=== PATIENT | female | born 1935 | race Caucasian/White ===

== ENCOUNTER 2017-02-28 07:31 | Day surgery (SDC) | payer MEDICARE, OTHER ==
[2017-02-28] MEDS ORDERED: Phenylephrine 10% Ophth Soln 5 ML Bot EYERT SCH (08:00)
[2017-02-28] MEDS ORDERED: Sodium Chloride 0.9% 10 ML Syringe FLUSH PRN (08:00)
[2017-02-28] MEDS ORDERED: Moxifloxacin 0.5% Ophth Soln 3 ML Bottle EYERT SCH (08:00)
[2017-02-28] MEDS ORDERED: Cyclopentolate 1% Ophth Soln 5 ML Bottle EYERT SCH (08:00)
[2017-02-28] MEDS ORDERED: Ondansetron 4 MG/2 ML SDV IVPUSH ONE (10:00)
[2017-02-28] MEDS ORDERED: Propofol 200 MG/20 ML SDV IV ONE (10:00)
[2017-02-28 12:04] VITALS: BP 143/71
--- NOTE | 2017-02-28 14:40 | OR ---
DATE OF OPERATION: 02/28/2017 SURGEON: Polo Wu MD PREOPERATIVE DIAGNOSES: 1. Cataract, right eye. 2. Poor pupillary dilation, right eye. POSTOPERATIVE DIAGNOSES: 1. Cataract, right eye. 2. Poor pupillary dilation, right eye. PROCEDURES: 1. Phacoemulsification of the cataract, right eye with the placement of an Joseph, model ZCB00, 23 diopter, foldable posterior chamber intraocular lens. 2. Manual pupillary dilation utilizing 6.25 mm Malyugin ring. DESCRIPTION OF PROCEDURE: Peribulbar anesthetic was performed using a mixture of 2% lidocaine with epinephrine and Wydase. The patient was then prepped and draped in usual fashion. A 3-mm fornix based conjunctival flap was performed at the 10 o'clock position. Hemostasis was obtained using diathermy and a 2.8-mm grooved near clear corneal incision was made. A stab incision was made into the anterior chamber at the 12 o'clock position, and a second stab incision underlying the near clear corneal incision. Viscoat was instilled into the anterior chamber, and the because of the patient's very poor pupillary dilation, a 6.25-mm Malyugin ring was placed. A continuous tear anterior capsulotomy was then performed. Hydrodissection was accomplished balanced salt solution. The nucleus removed in a divide and conquer fashion. The remaining cortical material was removed with the irrigation/aspiration unit. Viscoat was again instilled into the anterior chamber. An Joseph model ZCB00, 23-diopter, foldable posterior chamber intraocular lens was placed into the capsular bag. The haptics being positioned at the 1 and 7 o'clock positions. The Malyugin ring was then removed and residual viscoelastic was removed from the anterior chamber. The anterior chamber was reformed with Miostat. The wound was checked and noted to be watertight. The conjunctiva was secured in its original position with diathermy. 1 mL of Celestone was injected subconjunctivally. Alphagan P 0.1% and TobraDex eye ointment were then placed in the patient's eye. She tolerated the above-mentioned procedures well and there were without complication. Elapsed phacoemulsification time was 35.5 seconds. /[id number] DEG/MODL CC: MD Emi Meade, OD
== END 2017-02-28 11:37 | disposition home or self-care (01) ==
LOC: FB.SDS 07:31
PROVIDERS: ATTEND Ophthalmology
PROC: 08RJ3JZ Replacement of Right Lens with Synthetic Substitute, Percutaneous Approach (ICD-10-PCS; principal; 2017-02-28)
DX: H25.9 Unspecified age-related cataract (principal); I10 Essential (primary) hypertension; H40.1133 Primary open-angle glaucoma, bilateral, severe stage; Z79.899 Other long term (current) drug therapy
CPT/HCPCS: 00142; 66984; A4217; C1780; J2405; J2704; J7050

== ENCOUNTER 2019-02-07 19:35 | Emergency (ER) | payer MEDICARE, OTHER, MEDICAID ==
--- NOTE | 2019-02-07 21:00 | EDM.PDOC ---
ED HPI GENERAL MEDICAL PROBLEM - General Stated Complaint: FELL Time Seen by Provider: 02/07/19 20:42 Source of Information: Reports: Patient, Family (Daughter) History Limitations: Reports: Other (Patient has lewy body dementia and is a poor historian) - History of Present Illness INITIAL COMMENTS - FREE TEXT/NARRATIVE: 83-year-old female who reports that she was walking on the grass at her assisted living facility with a friend and they were trying to get back onto the sidewalk and apparently they lost footing and fell. She fell on her right side hitting her head, her right chest, her right pelvis/hip and knee. This was apparently unwitnessed but there was also apparently no loss of consciousness the patient has Lewy body dementia but she does seem to remember the fall and couldn't give me a fairly accurate accounting. It occurred approximate 7 PM. She was ambulatory after this occurred. She is complaining of headache, right chest wall pain, right hip and pelvis pain and right knee pain. She denies any nausea. There's been no vomiting. She told the nurse that her pain was a 5/10 he states that sore. It is worse with palpation and movement. She denies any trouble breathing at this point. She denies any weakness or dizziness. She is brought here by her daughter. However, her daughter not witnessed this occurrence and in fact nobody actually saw except for the other gentleman walking with her when they fell together. The daughter brought the patient here because the patient continued to complain of pain in the areas mentioned above and because his prompted to do so by staff at the assisted living. There are no other associated signs or symptoms. There are no other modifying factors. 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: Reports: Other (see below) (Nothing) right hip and knee Pain Score (Numeric/FACES): 5 - Related Data Allergies Allergy/AdvReac Type Severity Reaction Status Date / Time No Known Allergies Allergy Verified 11/12/14 09:19 Home Meds: Home Meds Acetaminophen [Tylenol] 325 mg PO Q4H PRN 11/12/14 [History] Aspirin [Ecotrin EC] 81 mg PO DAILY 11/12/14 [History] Calcium Carbonate/Vitamin D3 [Sm Calcium 600 + Vit D 400 Tab] 1 ea PO DAILY 03/21 [History] Donepezil [Aricept] 5 mg PO BEDTIME 11/12/14 [History] Dorzolamide HCl/Timolol Maleat [Cosopt Eye Drops] 1 drop EYELF BID 11/12/14 [ History] Latanoprost [Xalatan 0.005% Ophth Soln] 1 drop EYEBOTH BEDTIME 11/12/14 [History ] Meclizine [Antivert] 25 mg PO Q6H PRN 11/12/14 [History] Metoprolol Succinate [Toprol XL 50mg] 50 mg PO DAILY 11/12/14 [History] Omeprazole [Prilosec] 20 mg PO DAILY 11/12/14 [History] Ondansetron HCl [Ondansetron] 4 mg PO ASDIRECTED PRN 11/12/14 [History] Phenytoin Sodium Extended [Dilantin] 100 mg PO TID 11/12/14 [History] QUEtiapine [SEROquel] 25 mg PO BEDTIME 11/12/14 [History] Ibuprofen 800 mg PO BEDTIME PRN 11/13/14 [History] Loratadine [Claritin] 10 mg PO DAILY 02/27/17 [History] Acetaminophen [Tylenol] 325 mg PO ASDIRECTED 02/28/17 [History] Loperamide [Imodium AD] 2 mg PO BID PRN 02/28/17 [History] Naproxen Sodium 440 mg PO BID PRN 02/28/17 [History] Cephalexin [Keflex] 500 mg PO TID 7 Days #21 capsule 02/07/19 [Rx] Past Medical History HEENT History: Reports: Cataract, Glaucoma, Impaired Vision Cardiovascular History: Reports: High Cholesterol, Hypertension Gastrointestinal History: Reports: GERD 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 Musculoskeletal History: Reports: Arthritis Neurological History: Reports: Seizure, Vertigo, Other (See Below) (Lewy body dementia) Psychiatric History: Reports: Dementia (Lewy body) - Infectious Disease History Infectious Disease History: Reports: Chicken Pox, Measles, Mumps, Rubella - Past Surgical History HEENT Surgical History: Reports: Cataract Surgery Other HEENT Surgeries/Procedures: PAST PHACO IOL OF LEFT. GI Surgical History: Reports: Appendectomy Female Surgical History: Reports: Section, Hysterectomy Social & Family History - Tobacco Use Smoking Status *Q: Unknown Ever Smoked (Nonsmoker) - Alcohol Use Alcohol Use History: No - Living Situation & Occupation Living situation: Reports: Assisted Living Social History Comment: Here with her daughter. ED ROS GENERAL - Review of Systems Review Of Systems: See Below Constitutional: Reports: No Symptoms HEENT: Reports: No Symptoms Respiratory: Reports: No Symptoms Cardiovascular: Reports: Chest Pain (Right-sided as mentioned above). Denies: Lightheadedness Endocrine: Reports: No Symptoms GI/Abdominal: Reports: No Symptoms : Reports: No Symptoms (No hematuria) Musculoskeletal: Reports: Other (As above) Skin: Reports: No Symptoms (No open wounds) Neurological: Reports: Headache Hematologic/Lymphatic: Reports: No Symptoms (No chronic anticoagulation) Immunologic: Reports: No Symptoms ED EXAM, GENERAL - Physical Exam Exam: See Below Exam Limited By: No Limitations General Appearance: Alert, WD/WN, Mild Distress Eye Exam: Bilateral Eye: EOMI, Normal Inspection Ears: Normal External Exam Ear Exam: Bilateral Ear: Auricle Normal Nose: Normal Inspection, Normal Mucosa, No Blood Throat/Mouth: Normal Inspection, Normal Oropharynx, Normal Voice, No Airway Compromise Head: Atraumatic (I see no evidence of trauma), Normocephalic Neck: Normal Inspection, Non-Tender Respiratory/Chest: No Respiratory Distress, Lungs Clear, Normal Breath Sounds, No Accessory Muscle Use, Other (Tender along the right lateral chest. No crepitus or subcutaneous emphysema.) Peripheral Pulses: 2+: Radial (L), Radial (R), Dorsalis Pedis (L), Dorsalis Pedis (R) GI/Abdominal: Normal Bowel Sounds, Soft, Non-Tender, No Mass, Pelvis Stable Back Exam: Normal Inspection. No: CVA Tenderness (R), CVA Tenderness (L) Extremities: Normal Inspection, Normal Capillary Refill, Other (Somewhat tender over her right hip and right knee but there is good range of motion in both of these areas with no bony deformity or crepitus noted.) Neurological: Alert, CN II-XII Intact, No Motor/Sensory Deficits, Other ( Somewhat disoriented but this is unchanged from previous.) Skin Exam: Warm, Dry, Intact, Normal Color, No Rash Course - Vital Signs Last Recorded V/S: Last Vital Signs Temp 36.6 C 02/07/19 19:35 Pulse 63 02/07/19 19:35 Resp 18 02/07/19 19:35 BP 145/63 H 02/07/19 19:35 Pulse Ox 98 02/07/19 19:35 - Orders/Labs/Meds Orders: Active Orders 24 hr Category Date Time Status Cervical Spine wo Cont [CT] Stat Exams 02/07/19 21:00 Taken Chest 2V [CR] Stat Exams 02/07/19 21:00 Taken Head wo Cont [CT] Stat Exams 02/07/19 21:00 Ordered Hip Min 2V or 3V w Pelvis Rt [CR] Stat Exams 02/07/19 21:00 Taken Knee 1V or 2V Rt [CR] Stat Exams 02/07/19 21:00 Taken CULTURE URINE [RM] Stat Lab 02/07/19 21:27 Received Labs: Laboratory Tests 02/07/19 Range/Units 21:27 Urine Color Yellow (YELLOW) Urine Appearance Clear (CLEAR) Urine pH 7.0 H (5.0-6.5) Ur Specific [place] 1.005 L (1.010-1.025) Urine Protein Negative (NEGATIVE) mg/dL Urine Glucose (UA) Normal (NORMAL) mg/dL Urine Ketones Negative (NEGATIVE) mg/dL Urine Occult Blood Negative (NEGATIVE) Urine Nitrite Negative (NEGATIVE) Urine Bilirubin Negative (NEGATIVE) Urine Urobilinogen Normal (NEGATIVE) mg/dL Ur Leukocyte Esterase Moderate H (NEGATIVE) Urine RBC 0-5 (0-5) Urine WBC 10-20 H (0-5) Ur Squamous Epith Cells Few H (NS,R,O) Urine Bacteria Moderate H (NS) Meds: Medications Discontinued Medications Generic Name Dose Route Start Last Admin Trade Name Freq PRN Reason Stop Dose Admin Acetaminophen 1,000 mg 02/07/19 23:37 Tylenol Extra Strength PO 02/07/19 23:38 ONETIME ONE Cephalexin 500 mg 02/07/19 21:44 02/07/19 22:11 Keflex PO 02/07/19 21:45 500 mg ONETIME ONE Administration Naproxen 250 mg 02/07/19 23:48 Naprosyn PO 02/07/19 23:49 ONETIME ONE - Radiology Interpretation Free Text/Narrative:: CT of head shows no acute disease per the radiologist. CT scan of cervical spine shows degenerative changes but no fractures per the radiologist Chest x-ray PA and lateral shows no acute abnormality per the radiologist. Right knee x-ray shows no acute fracture per the radiologist. Pelvis and right hip x-ray shows degenerative changes but no fractures per the radiologist. - Re-Assessments/Exams Free Text/Narrative Re-Assessment/Exam: 02/07/19 23:52: The patient's urine does show evidence of a UTI. She was treated with Keflex. Her x-rays including the CT scan of her head and neck show no fractures or acute abnormalities. She appears to have bruises to the right side of her body no significant injury. She is awake and alert. She has remained vitally stable throughout her emergency department stay. The patient was ordered Tylenol but she would prefer naproxen which she usually takes for pain and I have ordered that for her. The plan will be to discharge her back to her assisted living. Departure - Departure Time of Disposition: 23:57 Disposition: Home, Self-Care 01 Condition: Fair (Stable) Clinical Impression: Fall from standing Qualifiers: Encounter type: initial encounter Qualified Code(s): W19.XXXA - Unspecified fall, initial encounter Head contusion Qualifiers: Encounter type: initial encounter Contusion of head detail: unspecified part of head Qualified Code(s): S00.93XA - Contusion of unspecified part of head, initial encounter Cervical strain Qualifiers: Encounter type: initial encounter Qualified Code(s): S16.1XXA - Strain of muscle, fascia and tendon at neck level, initial encounter Chest wall contusion Qualifiers: Encounter type: initial encounter Laterality: right Qualified Code(s): S20.211A - Contusion of right front wall of thorax, initial encounter Contusion of right hip Qualifiers: Encounter type: initial encounter Qualified Code(s): S70.01XA - Contusion of right hip, initial encounter Contusion of right knee Qualifiers: Encounter type: initial encounter Qualified Code(s): S80.01XA - Contusion of right knee, initial encounter UTI (urinary tract infection) Qualifiers: Urinary tract infection type: site unspecified Hematuria presence: without hematuria Qualified Code(s): N39.0 - Urinary tract infection, site not specified - Discharge Information Prescriptions: Cephalexin [Keflex] 500 mg PO TID 7 Days #21 capsule Instructions: Head Injury, Adult, [id number], Chest Contusion, Adult, Easy-to -Read, Urinary Tract Infection, Adult, Cervical Sprain, Contusion, [id number] Referrals: PCP,None [Primary Care Provider] - Additional Instructions: The x-rays of your chest, hip and pelvis and right knee show no fractures. The CAT scans of your head and neck show no fractures or bleeding. Appear to have bruises and strains to these areas. You do have a urinary tract infection. Medication as prescribed for this (Keflex 500 mg). You should increase your fluid intake. Take Tylenol and naproxen as needed for pain. Follow-up with your primary doctor as needed. Back to the emergency department for vomiting, trouble breathing, high fever other concerning sign or symptom. - My Orders Last 24 Hours: My Active Orders 02/07/19 21:00 Cervical Spine wo Cont [CT] Stat Chest 2V [CR] Stat Head wo Cont [CT] Stat Hip Min 2V or 3V w Pelvis Rt [CR] Stat Knee 1V or 2V Rt [CR] Stat 02/07/19 21:27 CULTURE URINE [RM] Stat - Assessment/Plan Last 24 Hours: My Active Orders 02/07/19 21:00 Cervical Spine wo Cont [CT] Stat Chest 2V [CR] Stat Head wo Cont [CT] Stat Hip Min 2V or 3V w Pelvis Rt [CR] Stat Knee 1V or 2V Rt [CR] Stat 02/07/19 21:27 CULTURE URINE [RM] Stat
[2019-02-07] MEDS ORDERED: Cephalexin 500 MG Cap PO ONE (21:44)
[2019-02-07 22:41] VITALS: PULSE 63
[2019-02-07] MEDS ORDERED: Acetaminophen 500 MG Tab PO ONE (23:37)
[2019-02-07] MEDS ORDERED: Naproxen 250 MG Tab PO ONE (23:48)
[2019-02-08 03:17] VITALS: BP 156/45
== END 2019-02-08 00:13 | disposition home or self-care (01) ==
LOC: FB.ED 19:35
DX: S16.1XXA Strain of muscle, fascia and tendon at neck level, initial encounter (principal); S20.211A Contusion of right front wall of thorax, initial encounter; S00.93XA Contusion of unspecified part of head, initial encounter; S70.01XA Contusion of right hip, initial encounter; S80.01XA Contusion of right knee, initial encounter; N39.0 Urinary tract infection, site not specified; I10 Essential (primary) hypertension; K21.9 Gastro-esophageal reflux disease without esophagitis; M19.90 Unspecified osteoarthritis, unspecified site; F03.90 Unspecified dementia, unspecified severity, without behavioral disturbance, psychotic disturbance, mood disturbance, and anxiety; Z90.49 Acquired absence of other specified parts of digestive tract; Z90.710 Acquired absence of both cervix and uterus; Z98.49 Cataract extraction status, unspecified eye; Z79.82 Long term (current) use of aspirin; Z79.899 Other long term (current) drug therapy; W19.XXXA Unspecified fall, initial encounter
CPT/HCPCS: 70450; 71046; 72125; 73502; 73560; 81001; 87086; 99285; A9270; 99284

== ENCOUNTER 2020-02-16 18:07 | Observation (INO) | payer MEDICARE, OTHER, MEDICAID ==
[2020-02-16] MEDS ORDERED: Sodium Chloride 0.9% 1,000 ML IV ONE (18:36)
--- NOTE | 2020-02-16 18:42 | EDM.PDOC ---
ED HPI GENERAL MEDICAL PROBLEM - General Chief Complaint: Neurological Problem Stated Complaint: WEAK AND PAIN Time Seen by Provider: 02/16/20 18:15 Source of Information: Reports: Patient, Family History Limitations: Reports: No Limitations - History of Present Illness INITIAL COMMENTS - FREE TEXT/NARRATIVE: c/o fall x 3 today pt in [place] at [facility], fell x 2 today and less responsive, son called at 1p, she fall again in the early evening and daughter called (who is here) and pt brought by EMS to ED son is on his way to ED [facility] said that they "can no longer provide care for her" pt scheduled to enter [facility] tomorrow AM pt minimally responsive here, not answering questions, not identifying her daughter who is in the room vss there is a possible c/o head pain earlier, no visible head trauma has h/o Lewy body dementia reported to be incontinent, to engage in bizarre behavior including walking down the reddy naked eating apparently has been erratic PMH NEURO: freq falls, head contusin, Lewy body dementia CV: htn, hyperlipidemia ORTHO: chest contusion, right hip contusion : UTI, urinary incontinence RECENT MEDS IN [place] GI: ondansetron prn, loperamide prn NEURO: quetiapine 25 hs, phenytoin 100 tid, meclizine 25 q6h prn ENT: loratadine 10/d, 2 eye drops GI omeprazoe 20/d CV: metoprolol 50/d, asa 81/d PAIN: apap 325 q4h prn - Related Data Allergies Allergy/AdvReac Type Severity Reaction Status Date / Time No Known Allergies Allergy Verified 11/12/14 09:19 Home Meds: Home Meds Aspirin [Ecotrin EC] 81 mg PO DAILY 11/12/14 [History] Donepezil [Aricept] 10 mg PO BEDTIME 11/12/14 [History] Latanoprost [Xalatan 0.005% Ophth Soln] 1 drop EYEBOTH BEDTIME 11/12/14 [History] Meclizine [Antivert] 25 mg PO Q6H PRN 11/12/14 [History] Omeprazole [Prilosec] 20 mg PO DAILY 11/12/14 [History] QUEtiapine [SEROquel] 25 mg PO BEDTIME 11/12/14 [History] ondansetron HCL [Ondansetron] 4 mg PO ASDIRECTED PRN 11/12/14 [History] Ibuprofen 800 mg PO BEDTIME PRN 11/13/14 [History] Loperamide [Imodium AD] 2 mg PO BID PRN 02/28/17 [History] Naproxen Sodium 440 mg PO BID PRN 02/28/17 [History] Brimonidine [Alphagan 0.2% Ophth Soln] 1 drop EYELF BID 02/16/20 [History] Calcium Citrate/Vitamin D2 [Calcium with Vit D Tablet] 1 tab PO DAILY 02/16/20 [History] Phenytoin [Dilantin-125 Susp] 12 ml PO DAILY 02/16/20 [History] Past Medical History HEENT History: Reports: Cataract, Glaucoma, Impaired Vision Cardiovascular History: Reports: High Cholesterol, Hypertension Respiratory History: Reports: None Gastrointestinal History: Reports: GERD Genitourinary History: Reports: None 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 Musculoskeletal History: Reports: Arthritis Neurological History: Reports: Seizure, Vertigo, Other (See Below) (Lewy body dementia) Psychiatric History: Reports: Dementia (Lewy body) Endocrine/Metabolic History: Reports: None Immunologic History: Reports: None Dermatologic History: Reports: None - Infectious Disease History Infectious Disease History: Reports: Chicken Pox, Measles, Mumps, Rubella - Past Surgical History HEENT Surgical History: Reports: Cataract Surgery Other HEENT Surgeries/Procedures: PAST PHACO IOL OF LEFT. GI Surgical History: Reports: Appendectomy Female Surgical History: Reports: Section, Hysterectomy Social & Family History - Family History Family Medical History: Noncontributory - Caffeine Use Caffeine Use: Reports: Soda - Living Situation & Occupation Living situation: Reports: Assisted Living ED ROS GENERAL - Review of Systems Review Of Systems: Unable To Obtain Reason Not Obtained: no talking, some hx from family and AL ED EXAM, GENERAL - Physical Exam Exam: See Below Exam Limited By: Altered Mental Status General Appearance: Other (thin, somewhat emaciated, weak, opens eyes on occas ion, conjugate gaze, does not make eye contact, does not answer questions, does not open mouth when asked) Ears: Normal External Exam Nose: Normal Inspection, Normal Mucosa Throat/Mouth: Normal Inspection, Normal Lips, No Airway Compromise Head: Atraumatic, Normocephalic Neck: Normal Inspection, Supple, Non-Tender, Full Range of Motion Respiratory/Chest: No Respiratory Distress, Lungs Clear, Normal Breath Sounds, No Accessory Muscle Use, Chest Non-Tender GI/Abdominal: Normal Bowel Sounds, Soft, Non-Tender, No Distention Back Exam: Normal Inspection, Full Range of Motion Extremities: Normal Inspection, Normal Range of Motion, Non-Tender, No Pedal Edema, Other (dec'd turgor) Neurological: Other (GARSIA, weak, conjugate gaze, not cooperating) Skin Exam: Warm, Dry, Intact, Normal Color, No Rash Lymphatic: No Adenopathy Course - Vital Signs Last Recorded V/S: Last Vital Signs Temp 36.6 C 02/16/20 22:03 Pulse 72 02/16/20 22:03 Resp 18 02/16/20 22:03 BP 152/70 H 02/16/20 22:03 Pulse Ox 100 02/16/20 22:03 - Orders/Labs/Meds Orders: Active Orders 24 hr Category Date Time Status Admission Status [Patient Status] [ADT] Routine ADT 02/16/20 21:11 Ordered EKG Documentation Completion [RC] ASDIRECTED Care 02/16/20 18:34 Active Chest 1V Frontal [CR] Stat Exams 02/16/20 18:32 Taken Head wo Cont [CT] Stat Exams 02/16/20 18:32 Taken Pelvis 1V or 2V [CR] Stat Exams 02/16/20 19:12 Taken CULTURE BLOOD [BC] Urgent Lab 02/16/20 19:10 Received CULTURE BLOOD [BC] Urgent Lab 02/16/20 19:15 Received Sodium Chloride 0.9% [Normal Saline] 1,000 ml Med 02/16/20 20:15 Active IV ASDIRECTED Sodium Chloride 0.9% [Saline Flush] Med 02/16/20 19:00 Active 10 ml FLUSH ASDIRECTED PRN cefTRIAXone [Rocephin] Med 02/16/20 20:15 Active 1 gm IVPUSH Q24H Blood Culture x2 Reflex Set [OM.PC] Urgent Oth 02/16/20 18:32 Ordered EKG 12 Lead [EK] Routine Ther 02/16/20 18:32 Ordered Medication Orders Ceftriaxone Sodium (Rocephin) 1 gm IVPUSH Q24H STEFFI Last Admin: 02/16/20 20:44 Dose: 1 gm Documented by: JOSE RAMON Sodium Chloride (Normal Saline) 1,000 mls @ 999 mls/hr IV ASDIRECTED STEFFI Last Admin: 02/16/20 20:10 Dose: 999 mls/hr Documented by: JOSE RAMON Sodium Chloride (Saline Flush) 10 ml FLUSH ASDIRECTED PRN PRN Reason: flush Last Admin: 02/16/20 19:00 Dose: 10 ml Documented by: DELL Labs: Laboratory Tests 02/16/20 02/16/20 02/16/20 Range/Units 18:15 18:15 18:15 WBC 12.0 (4.5-12.0) X10-3/uL RBC 4.91 (3.23-5.20) x10(6)uL Hgb 14.0 (11.5-15.5) g/dL Hct 42.8 (30.0-51.3) % MCV 87.2 (80-96) fL MCH 28.5 (27.7-33.6) pg MCHC 32.7 (32.2-35.4) g/dL RDW 13.8 (11.5-15.5) % Plt Count 48 L (125-369) X10(3)uL MPV 8.5 (7.4-10.4) fL Add Manual Diff Yes Neutrophils % (Manual) 81 (46-82) % Lymphocytes % (Manual) 14 (13-37) % Monocytes % (Manual) 5 (4-12) % PT 11.6 H (9.0-11.1) sec INR 1.08 (1.00-1.24) Sodium 139 (135-145) mmol/L Potassium 3.8 (3.5-5.3) mmol/L Chloride 103 (100-110) mmol/L Carbon Dioxide 30 (21-32) mmol/L BUN 21 H (7-18) mg/dL Creatinine 0.8 (0.55-1.02) mg/dL Est Cr Clr Drug Dosing TNP Estimated GFR (MDRD) > 60 (>60) BUN/Creatinine Ratio 26.3 H (9-20) Glucose 125 H (80-116) mg/dL Lactic Acid (0.4-2.0) mmol/L Calcium 9.0 (8.6-10.2) mg/dL Total Bilirubin 0.6 (0.1-1.3) mg/dL AST 25 (5-25) IU/L ALT 16 (12-36) U/L Alkaline Phosphatase 173 H (56-112) IU/L Troponin I (4.0-60.3) pg/mL C-Reactive Protein (0.5-0.9) mg/dL Total Protein 6.8 (6.0-8.0) g/dL Albumin 3.4 (3.2-4.6) g/dL Globulin 3.4 g/dL Albumin/Globulin Ratio 1.0 Urine Color (YELLOW) Urine Appearance (CLEAR) Urine pH (5.0-6.5) Ur Specific [place] (1.010-1.025) Urine Protein (NEGATIVE) mg/dL Urine Glucose (UA) (NORMAL) mg/dL Urine Ketones (NEGATIVE) mg/dL Urine Occult Blood (NEGATIVE) Urine Nitrite (NEGATIVE) Urine Bilirubin (NEGATIVE) Urine Urobilinogen (NEGATIVE) mg/dL Ur Leukocyte Esterase (NEGATIVE) Urine RBC (0-5) Urine WBC (0-5) Ur Squamous Epith Cells (NS,R,O) Urine Bacteria (NS) Urine Mucus (NS) Phenytoin (<0.4) ug/mL 02/16/20 02/16/20 02/16/20 Range/Units 18:15 18:15 18:15 WBC (4.5-12.0) X10-3/uL RBC (3.23-5.20) x10(6)uL Hgb (11.5-15.5) g/dL Hct (30.0-51.3) % MCV (80-96) fL MCH (27.7-33.6) pg MCHC (32.2-35.4) g/dL RDW (11.5-15.5) % Plt Count (125-369) X10(3)uL MPV (7.4-10.4) fL Add Manual Diff Neutrophils % (Manual) (46-82) % Lymphocytes % (Manual) (13-37) % Monocytes % (Manual) (4-12) % PT (9.0-11.1) sec INR (1.00-1.24) Sodium (135-145) mmol/L Potassium (3.5-5.3) mmol/L Chloride (100-110) mmol/L Carbon Dioxide (21-32) mmol/L BUN (7-18) mg/dL Creatinine (0.55-1.02) mg/dL Est Cr Clr Drug Dosing Estimated GFR (MDRD) (>60) BUN/Creatinine Ratio (9-20) Glucose (80-116) mg/dL Lactic Acid 1.4 (0.4-2.0) mmol/L Calcium (8.6-10.2) mg/dL Total Bilirubin (0.1-1.3) mg/dL AST (5-25) IU/L ALT (12-36) U/L Alkaline Phosphatase (56-112) IU/L Troponin I 13.5 (4.0-60.3) pg/mL C-Reactive Protein 8.9 H* (0.5-0.9) mg/dL Total Protein (6.0-8.0) g/dL Albumin (3.2-4.6) g/dL Globulin g/dL Albumin/Globulin Ratio Urine Color (YELLOW) Urine Appearance (CLEAR) Urine pH (5.0-6.5) Ur Specific [place] (1.010-1.025) Urine Protein (NEGATIVE) mg/dL Urine Glucose (UA) (NORMAL) mg/dL Urine Ketones (NEGATIVE) mg/dL Urine Occult Blood (NEGATIVE) Urine Nitrite (NEGATIVE) Urine Bilirubin (NEGATIVE) Urine Urobilinogen (NEGATIVE) mg/dL Ur Leukocyte Esterase (NEGATIVE) Urine RBC (0-5) Urine WBC (0-5) Ur Squamous Epith Cells (NS,R,O) Urine Bacteria (NS) Urine Mucus (NS) Phenytoin 39.6 H* (<0.4) ug/mL 02/16/20 Range/Units 18:55 WBC (4.5-12.0) X10-3/uL RBC (3.23-5.20) x10(6)uL Hgb (11.5-15.5) g/dL Hct (30.0-51.3) % MCV (80-96) fL MCH (27.7-33.6) pg MCHC (32.2-35.4) g/dL RDW (11.5-15.5) % Plt Count (125-369) X10(3)uL MPV (7.4-10.4) fL Add Manual Diff Neutrophils % (Manual) (46-82) % Lymphocytes % (Manual) (13-37) % Monocytes % (Manual) (4-12) % PT (9.0-11.1) sec INR (1.00-1.24) Sodium (135-145) mmol/L Potassium (3.5-5.3) mmol/L Chloride (100-110) mmol/L Carbon Dioxide (21-32) mmol/L BUN (7-18) mg/dL Creatinine (0.55-1.02) mg/dL Est Cr Clr Drug Dosing Estimated GFR (MDRD) (>60) BUN/Creatinine Ratio (9-20) Glucose (80-116) mg/dL Lactic Acid (0.4-2.0) mmol/L Calcium (8.6-10.2) mg/dL Total Bilirubin (0.1-1.3) mg/dL AST (5-25) IU/L ALT (12-36) U/L Alkaline Phosphatase (56-112) IU/L Troponin I (4.0-60.3) pg/mL C-Reactive Protein (0.5-0.9) mg/dL Total Protein (6.0-8.0) g/dL Albumin (3.2-4.6) g/dL Globulin g/dL Albumin/Globulin Ratio Urine Color Yellow (YELLOW) Urine Appearance Slightly cloudy (CLEAR) Urine pH 5.0 (5.0-6.5) Ur Specific [place] 1.020 (1.010-1.025) Urine Protein Trace (NEGATIVE) mg/dL Urine Glucose (UA) Normal (NORMAL) mg/dL Urine Ketones 15 H (NEGATIVE) mg/dL Urine Occult Blood Negative (NEGATIVE) Urine Nitrite Negative (NEGATIVE) Urine Bilirubin Small H (NEGATIVE) Urine Urobilinogen 4 H (NEGATIVE) mg/dL Ur Leukocyte Esterase Small H (NEGATIVE) Urine RBC 0-5 (0-5) Urine WBC 0-5 (0-5) Ur Squamous Epith Cells Moderate H (NS,R,O) Urine Bacteria Few H (NS) Urine Mucus Many H (NS) Phenytoin (<0.4) ug/mL Meds: Medications Generic Name Dose Route Start Last Admin Trade Name Freq PRN Reason Stop Dose Admin Ceftriaxone Sodium 1 gm 02/16/20 20:15 02/16/20 20:44 Rocephin IVPUSH 1 gm Q24H STEFFI Administration Sodium Chloride 1,000 mls @ 999 mls/hr 02/16/20 20:15 02/16/20 20:10 Normal Saline IV 999 mls/hr ASDIRECTED STEFFI Administration Sodium Chloride 10 ml 02/16/20 19:00 02/16/20 19:00 Saline Flush FLUSH 10 ml ASDIRECTED PRN Administration flush Discontinued Medications Generic Name Dose Route Start Last Admin Trade Name Suze PRN Reason Stop Dose Admin Sodium Chloride 1,000 mls @ 999 mls/hr 02/16/20 18:36 02/16/20 19:00 Normal Saline IV 02/16/20 19:36 999 mls/hr .BOLUS ONE Administration Vancomycin HCl 750 mg/ Sodium 250 mls @ 166.667 mls/hr 02/16/20 20:06 02/16/20 20:44 Chloride IV 02/16/20 20:07 166.667 mls/hr ONETIME ONE Administration Lorazepam 0.5 mg 02/16/20 20:03 02/16/20 20:10 Ativan IVPUSH 02/16/20 20:04 0.5 mg ONETIME ONE Administration - Re-Assessments/Exams Free Text/Narrative Re-Assessment/Exam: 02/16/20 21:18 pt much more alert after one bag NS to the extent she required 0.5 mg Ativan IV to obtain the head CT (that was neg) comparison labs not available, however pt does have marked inc'd CRP, borderline inc'd WBC and low plts, all suggesting possible infection son reports she was on an antbx for a UTI 2w ago, u/a and CxR now do not show infection last "major seizure" was last April, now phenytoin is 2x ULN given IV ceftriaxone and vanco for possible sepsis, will admit to obs bed and recheck labs in AM, unclear if she needs to stay for a full 3d of IV antbxs pending BC results or whether she may be able to changed to oral antbxs tomorrow and d/c'ed to [facility] or whether the antbs need to be continued pt is DNR/DNI Departure - Departure Time of Disposition: 21:13 Disposition: Refer to Observation Condition: Fair Clinical Impression: Mental status, decreased, Moderate dehydration, Elevated C-reactive protein (CRP), Thrombocytopenia, Ketonuria, Phenytoin overdose, Elevated BUN, Elevated alkaline phosphatase level, Lewy body dementia, Weight loss - Discharge Information *PRESCRIPTION DRUG MONITORING PROGRAM REVIEWED*: Not Applicable *COPY OF PRESCRIPTION DRUG MONITORING REPORT IN PATIENT GINGER: Not Applicable Referrals: Jay Martinez MD [Primary Care Provider] - Forms: ED Department Discharge Sepsis Event Note (ED) - Focused Exam Vital Signs: Vital Signs Temp Pulse Resp BP Pulse Ox 02/16/20 22:03 36.6 C 72 18 152/70 H 100 02/16/20 18:07 36.6 C 80 17 146/75 H 99 - My Orders Last 24 Hours: My Active Orders 02/16/20 18:32 Chest 1V Frontal [CR] Stat Head wo Cont [CT] Stat Blood Culture x2 Reflex Set [OM.PC] Urgent EKG 12 Lead [EK] Routine 02/16/20 18:34 EKG Documentation Completion [RC] ASDIRECTED 02/16/20 19:00 Sodium Chloride 0.9% [Saline Flush] 10 ml FLUSH ASDIRECTED PRN 02/16/20 19:10 CULTURE BLOOD [BC] Urgent 02/16/20 19:12 Pelvis 1V or 2V [CR] Stat 02/16/20 19:15 CULTURE BLOOD [BC] Urgent 02/16/20 20:15 Sodium Chloride 0.9% [Normal Saline] 1,000 ml IV ASDIRECTED cefTRIAXone [Rocephin] 1 gm IVPUSH Q24H 02/16/20 21:11 Admission Status [Patient Status] [ADT] Routine - Assessment/Plan Last 24 Hours: My Active Orders 02/16/20 18:32 Chest 1V Frontal [CR] Stat Head wo Cont [CT] Stat Blood Culture x2 Reflex Set [OM.PC] Urgent EKG 12 Lead [EK] Routine 02/16/20 18:34 EKG Documentation Completion [RC] ASDIRECTED 02/16/20 19:00 Sodium Chloride 0.9% [Saline Flush] 10 ml FLUSH ASDIRECTED PRN 02/16/20 19:10 CULTURE BLOOD [BC] Urgent 02/16/20 19:12 Pelvis 1V or 2V [CR] Stat 02/16/20 19:15 CULTURE BLOOD [BC] Urgent 02/16/20 20:15 Sodium Chloride 0.9% [Normal Saline] 1,000 ml IV ASDIRECTED cefTRIAXone [Rocephin] 1 gm IVPUSH Q24H 02/16/20 21:11 Admission Status [Patient Status] [ADT] Routine
[2020-02-16] MEDS ORDERED: Sodium Chloride 0.9% 10 ML Syringe FLUSH PRN (19:00)
[2020-02-16] MEDS ORDERED: LORazepam 2 MG/ML SDV IVPUSH ONE (20:03)
[2020-02-16] MEDS ORDERED: Sodium Chloride 0.9% 1,000 ML IV SCH (20:15)
[2020-02-16] MEDS ORDERED: cefTRIAXone 1 GM Vial IVPUSH SCH (20:15)
[2020-02-16] MEDS ORDERED: Acetaminophen 325 MG Tab PO PRN (22:41)
[2020-02-16] MEDS ORDERED: Ondansetron 4 MG/2 ML SDV IV PRN (22:41)
[2020-02-16] MEDS ORDERED: Ondansetron 4 MG Tab.DIS PO PRN (22:41)
[2020-02-16] MEDS ORDERED: Ibuprofen 800 MG Tab PO PRN (22:46)
[2020-02-16] MEDS ORDERED: Dextrose 5%-0.225% NaCl w/KCl 1,000 ML IV SCH (23:15)
[2020-02-17 03:48] VITALS: BP 122/73; PULSE 73
--- NOTE | 2020-02-17 08:17 | PCM.HP.2 ---
H&P History of Present Illness - General Date of Service: 02/17/20 Admit Problem/Dx: Admission Diagnosis/Problem Admission Diagnosis/Problem Mental status, decreased Source of Information: Patient, Family History Limitations: Reports: Altered Mental Status - History of Present Illness Initial Comments - Free Text/Narative: 84-year-old female with dementia. She has been at [facility], but over the last few months her health has been failing. She's been found wandering around, not eating or drinking. She fell twice last night and the [facility] staff were unable to take care of her. She is due to go to [facility] this morning. She was unresponsive and not able to recognize her children anymore.No report of any fever. - Related Data Allergies/Adverse Reactions: Allergies Allergy/AdvReac Type Severity Reaction Status Date / Time No Known Allergies Allergy Verified 11/12/14 09:19 Home Medications: Home Meds Aspirin [Ecotrin EC] 81 mg PO DAILY 11/12/14 [History] Donepezil [Aricept] 10 mg PO BEDTIME 11/12/14 [History] Latanoprost [Xalatan 0.005% Ophth Soln] 1 drop EYEBOTH BEDTIME 11/12/14 [History] Meclizine [Antivert] 25 mg PO Q6H PRN 11/12/14 [History] Omeprazole [Prilosec] 20 mg PO DAILY 11/12/14 [History] QUEtiapine [SEROquel] 25 mg PO BEDTIME 11/12/14 [History] ondansetron HCL [Ondansetron] 4 mg PO ASDIRECTED PRN 11/12/14 [History] Ibuprofen 800 mg PO BEDTIME PRN 11/13/14 [History] Loperamide [Imodium AD] 2 mg PO BID PRN 02/28/17 [History] Naproxen Sodium 440 mg PO DAILY 02/28/17 [History] Brimonidine [Alphagan 0.2% Ophth Soln] 1 drop EYELF BID 02/16/20 [History] Calcium Citrate/Vitamin D2 [Calcium with Vit D Tablet] 1 tab PO DAILY 02/16/20 [History] Phenytoin [Dilantin-125 Susp] 12 ml PO DAILY 02/16/20 [History] Past Medical History HEENT History: Reports: Cataract, Glaucoma, Impaired Vision Cardiovascular History: Reports: High Cholesterol, Hypertension Respiratory History: Reports: None Gastrointestinal History: Reports: GERD Genitourinary History: Reports: None 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 Musculoskeletal History: Reports: Arthritis Neurological History: Reports: Seizure, Vertigo, Other (See Below) (Lewy body dementia) Psychiatric History: Reports: Dementia (Lewy body) Other Psychiatric History: lewy body dementia Endocrine/Metabolic History: Reports: None Immunologic History: Reports: None Dermatologic History: Reports: None - Infectious Disease History Infectious Disease History: Reports: Chicken Pox, Measles, Mumps, Rubella - Past Surgical History HEENT Surgical History: Reports: Cataract Surgery Other HEENT Surgeries/Procedures: PAST PHACO IOL OF LEFT. GI Surgical History: Reports: Appendectomy Female Surgical History: Reports: Section, Hysterectomy Social & Family History - Family History Family Medical History: Noncontributory - Tobacco Use Smoking Status *Q: Unknown Ever Smoked Second Hand Smoke Exposure: No - Caffeine Use Caffeine Use: Reports: Soda - Recreational Drug Use Recreational Drug Use: No - Living Situation & Occupation Living situation: Reports: Assisted Living H&P Review of Systems - Review of Systems: Review Of Systems: Comprehensive ROS is negative, except as noted in HPI. Exam - Exam Exam: See Below - Vital Signs Vital Signs: Last Vital Signs Temp 97.2 F 02/17/20 03:47 Pulse 73 02/17/20 03:47 Resp 18 02/17/20 03:47 BP 122/73 02/17/20 03:47 Pulse Ox 95 02/17/20 03:47 Weight: 50.462 kg - Exam Quality Assessment: Other (cachectic) General: Lethargic HEENT: PERRLA Neck: Supple Lungs: Clear to Auscultation Cardiovascular: Regular Rate GI/Abdominal Exam: Soft (Female) Exam: Deferred Rectal (Female) Exam: Deferred Back Exam: Normal Inspection Skin: Warm Neuro Extensive - Mental Status: No: Oriented x3 Psychiatric: Depressed - Patient Data Lab Results Last 24 hrs: Laboratory Results - last 24 hr 02/16/20 02/16/20 02/16/20 Range/Units 18:15 18:15 18:15 WBC 12.0 (4.5-12.0) X10-3/uL RBC 4.91 (3.23-5.20) x10(6)uL Hgb 14.0 (11.5-15.5) g/dL Hct 42.8 (30.0-51.3) % MCV 87.2 (80-96) fL MCH 28.5 (27.7-33.6) pg MCHC 32.7 (32.2-35.4) g/dL RDW 13.8 (11.5-15.5) % Plt Count 48 L (125-369) X10(3)uL MPV 8.5 (7.4-10.4) fL Add Manual Diff Yes Neutrophils % (Manual) 81 (46-82) % Lymphocytes % (Manual) 14 (13-37) % Monocytes % (Manual) 5 (4-12) % PT 11.6 H (9.0-11.1) sec INR 1.08 (1.00-1.24) Sodium 139 (135-145) mmol/L Potassium 3.8 (3.5-5.3) mmol/L Chloride 103 (100-110) mmol/L Carbon Dioxide 30 (21-32) mmol/L BUN 21 H (7-18) mg/dL Creatinine 0.8 (0.55-1.02) mg/dL Est Cr Clr Drug Dosing TNP Estimated GFR (MDRD) > 60 (>60) BUN/Creatinine Ratio 26.3 H (9-20) Glucose 125 H (80-116) mg/dL Lactic Acid (0.4-2.0) mmol/L Calcium 9.0 (8.6-10.2) mg/dL Total Bilirubin 0.6 (0.1-1.3) mg/dL AST 25 (5-25) IU/L ALT 16 (12-36) U/L Alkaline Phosphatase 173 H (56-112) IU/L Troponin I (4.0-60.3) pg/mL C-Reactive Protein (0.5-0.9) mg/dL Total Protein 6.8 (6.0-8.0) g/dL Albumin 3.4 (3.2-4.6) g/dL Globulin 3.4 g/dL Albumin/Globulin Ratio 1.0 Urine Color (YELLOW) Urine Appearance (CLEAR) Urine pH (5.0-6.5) Ur Specific [place] (1.010-1.025) Urine Protein (NEGATIVE) mg/dL Urine Glucose (UA) (NORMAL) mg/dL Urine Ketones (NEGATIVE) mg/dL Urine Occult Blood (NEGATIVE) Urine Nitrite (NEGATIVE) Urine Bilirubin (NEGATIVE) Urine Urobilinogen (NEGATIVE) mg/dL Ur Leukocyte Esterase (NEGATIVE) Urine RBC (0-5) Urine WBC (0-5) Ur Squamous Epith Cells (NS,R,O) Urine Bacteria (NS) Urine Mucus (NS) Phenytoin (<0.4) ug/mL 02/16/20 02/16/20 02/16/20 Range/Units 18:15 18:15 18:15 WBC (4.5-12.0) X10-3/uL RBC (3.23-5.20) x10(6)uL Hgb (11.5-15.5) g/dL Hct (30.0-51.3) % MCV (80-96) fL MCH (27.7-33.6) pg MCHC (32.2-35.4) g/dL RDW (11.5-15.5) % Plt Count (125-369) X10(3)uL MPV (7.4-10.4) fL Add Manual Diff Neutrophils % (Manual) (46-82) % Lymphocytes % (Manual) (13-37) % Monocytes % (Manual) (4-12) % PT (9.0-11.1) sec INR (1.00-1.24) Sodium (135-145) mmol/L Potassium (3.5-5.3) mmol/L Chloride (100-110) mmol/L Carbon Dioxide (21-32) mmol/L BUN (7-18) mg/dL Creatinine (0.55-1.02) mg/dL Est Cr Clr Drug Dosing Estimated GFR (MDRD) (>60) BUN/Creatinine Ratio (9-20) Glucose (80-116) mg/dL Lactic Acid 1.4 (0.4-2.0) mmol/L Calcium (8.6-10.2) mg/dL Total Bilirubin (0.1-1.3) mg/dL AST (5-25) IU/L ALT (12-36) U/L Alkaline Phosphatase (56-112) IU/L Troponin I 13.5 (4.0-60.3) pg/mL C-Reactive Protein 8.9 H* (0.5-0.9) mg/dL Total Protein (6.0-8.0) g/dL Albumin (3.2-4.6) g/dL Globulin g/dL Albumin/Globulin Ratio Urine Color (YELLOW) Urine Appearance (CLEAR) Urine pH (5.0-6.5) Ur Specific [place] (1.010-1.025) Urine Protein (NEGATIVE) mg/dL Urine Glucose (UA) (NORMAL) mg/dL Urine Ketones (NEGATIVE) mg/dL Urine Occult Blood (NEGATIVE) Urine Nitrite (NEGATIVE) Urine Bilirubin (NEGATIVE) Urine Urobilinogen (NEGATIVE) mg/dL Ur Leukocyte Esterase (NEGATIVE) Urine RBC (0-5) Urine WBC (0-5) Ur Squamous Epith Cells (NS,R,O) Urine Bacteria (NS) Urine Mucus (NS) Phenytoin 39.6 H* (<0.4) ug/mL 02/16/20 02/17/20 02/17/20 Range/Units 18:55 06:30 06:30 WBC (4.5-12.0) X10-3/uL RBC (3.23-5.20) x10(6)uL Hgb (11.5-15.5) g/dL Hct (30.0-51.3) % MCV (80-96) fL MCH (27.7-33.6) pg MCHC (32.2-35.4) g/dL RDW (11.5-15.5) % Plt Count (125-369) X10(3)uL MPV (7.4-10.4) fL Add Manual Diff Neutrophils % (Manual) (46-82) % Lymphocytes % (Manual) (13-37) % Monocytes % (Manual) (4-12) % PT (9.0-11.1) sec INR (1.00-1.24) Sodium 139 (135-145) mmol/L Potassium 3.9 (3.5-5.3) mmol/L Chloride 107 (100-110) mmol/L Carbon Dioxide 26 (21-32) mmol/L BUN 15 (7-18) mg/dL Creatinine 0.7 (0.55-1.02) mg/dL Est Cr Clr Drug Dosing 48.51 Estimated GFR (MDRD) > 60 (>60) BUN/Creatinine Ratio 21.4 H (9-20) Glucose 129 H (80-116) mg/dL Lactic Acid (0.4-2.0) mmol/L Calcium 7.6 L (8.6-10.2) mg/dL Total Bilirubin (0.1-1.3) mg/dL AST (5-25) IU/L ALT (12-36) U/L Alkaline Phosphatase (56-112) IU/L Troponin I (4.0-60.3) pg/mL C-Reactive Protein 9.0 H* (0.5-0.9) mg/dL Total Protein (6.0-8.0) g/dL Albumin (3.2-4.6) g/dL Globulin g/dL Albumin/Globulin Ratio Urine Color Yellow (YELLOW) Urine Appearance Slightly cloudy (CLEAR) Urine pH 5.0 (5.0-6.5) Ur Specific [place] 1.020 (1.010-1.025) Urine Protein Trace (NEGATIVE) mg/dL Urine Glucose (UA) Normal (NORMAL) mg/dL Urine Ketones 15 H (NEGATIVE) mg/dL Urine Occult Blood Negative (NEGATIVE) Urine Nitrite Negative (NEGATIVE) Urine Bilirubin Small H (NEGATIVE) Urine Urobilinogen 4 H (NEGATIVE) mg/dL Ur Leukocyte Esterase Small H (NEGATIVE) Urine RBC 0-5 (0-5) Urine WBC 0-5 (0-5) Ur Squamous Epith Cells Moderate H (NS,R,O) Urine Bacteria Few H (NS) Urine Mucus Many H (NS) Phenytoin (<0.4) ug/mL Result Diagrams: 02/16/20 18:15 02/17/20 06:30 Sepsis Event Note - Evaluation Sepsis Screening Result: No Definite Risk - Focused Exam Vital Signs: Vital Signs Temp Pulse Resp BP Pulse Ox 02/17/20 03:47 97.2 F 73 18 122/73 95 02/16/20 22:41 97.4 F 65 18 152/73 H 100 02/16/20 22:03 97.9 F 72 18 152/70 H 100 02/16/20 21:20 97.5 F 72 16 152/73 H 100 Date Exam was Performed: 02/17/20 Time Exam was Performed: 08:12 - Problem List (1) Dementia SNOMED Code(s): 25090058 ICD Code: F03.90 - UNSPECIFIED DEMENTIA WITHOUT BEHAVIORAL DISTURBANCE Status: Acute Current Visit: Yes Qualifiers: Dementia type: Lewy body dementia Dementia behavioral disturbance: with behavioral disturbance Qualified Code(s): G31.83 - Dementia with Lewy bodies; F02.81 - Dementia in other diseases classified elsewhere with behavioral disturbance (2) Failure to thrive SNOMED Code(s): 08921881 ICD Code: ACV4704 - Status: Acute Current Visit: Yes (3) Cachexia SNOMED Code(s): 908013019 ICD Code: R64 - [place] Status: Acute Current Visit: Yes (4) Falls frequently SNOMED Code(s): 787505032 ICD Code: R29.6 - REPEATED FALLS Status: Acute Current Visit: Yes (5) MDD (major depressive disorder) SNOMED Code(s): 190331899 ICD Code: F32.9 - MAJOR DEPRESSIVE DISORDER, SINGLE EPISODE, UNSPECIFIED Status: Acute Current Visit: Yes Qualifiers: Major depression recurrence: recurrent Major depression episode severity: moderate Problem List Initiated/Reviewed/Updated: Yes Orders Last 24hrs: Active Orders 24 hr Category Date Time Status Admission Status [Patient Status] [ADT] Routine ADT 02/16/20 21:11 Active EKG Documentation Completion [RC] ASDIRECTED Care 02/16/20 18:34 Active Up With Assistance [RC] ASDIRECTED Care 02/16/20 22:41 Active VTE/DVT Education [RC] Per Unit Routine Care 02/16/20 22:41 Active Vital Signs [RC] Q4H Care 02/16/20 22:41 Active PT Evaluation and Treatment [CONS] Routine Cons 02/16/20 22:41 Active Mechanical Soft Diet [DIET] Diet 02/17/20 Breakfast Active Chest 1V Frontal [CR] Stat Exams 02/16/20 18:32 Taken Head wo Cont [CT] Stat Exams 02/16/20 18:32 Taken Pelvis 1V or 2V [CR] Stat Exams 02/16/20 19:12 Taken CBC WITH AUTO DIFF [HEME] AM Lab 02/17/20 06:30 Received CULTURE BLOOD [BC] Urgent Lab 02/16/20 19:10 Received CULTURE BLOOD [BC] Urgent Lab 02/16/20 19:15 Received Acetaminophen [Tylenol] Med 02/16/20 22:41 Active 650 mg PO Q4H PRN Aspirin [Halfprin] Med 02/17/20 09:00 Pending 81 mg PO DAILY Brimonidine [Alphagan 0.2% Ophth Soln] Med 02/17/20 09:00 Ordered DOSE ml EYELF BID Dextrose 5%-0.225% NaCl w/KCl [D5 1/4 NS with 20 mEq Med 02/16/20 23:15 Active KCl] 1,000 ml IV ASDIRECTED Donepezil [Aricept] Med 02/17/20 21:00 Ordered 10 mg PO BEDTIME Ibuprofen [Motrin] Med 02/16/20 22:46 Ordered 800 mg PO BEDTIME PRN Latanoprost [Xalatan 0.005% Ophth Soln] Med 02/17/20 21:00 Ordered DOSE ml EYEBOTH BEDTIME Omeprazole [Prilosec] Med 02/17/20 09:00 Ordered 20 mg PO DAILY Ondansetron [Zofran ODT] Med 02/16/20 22:41 Active 4 mg PO Q4H PRN Ondansetron [Zofran] Med 02/16/20 22:41 Active 4 mg IV Q4H PRN QUEtiapine [SEROqueL] Med 02/17/20 21:00 Ordered 25 mg PO BEDTIME Sodium Chloride 0.9% [Normal Saline] 1,000 ml Med 02/16/20 20:15 Active IV ASDIRECTED Sodium Chloride 0.9% [Saline Flush] Med 02/16/20 19:00 Active 10 ml FLUSH ASDIRECTED PRN Vancomycin 750 mg Med 02/17/20 21:00 Active Sodium Chloride 0.9% [Normal Saline] 250 ml IV Q24H [id number] [Rocephin] Med 02/16/20 20:15 Active 1 gm IVPUSH Q24H Blood Culture x2 Reflex Set [OM.PC] Urgent Oth 02/16/20 18:32 Ordered Resuscitation Status Routine Resus Stat 02/16/20 22:41 Ordered EKG 12 Lead [EK] Routine Ther 02/16/20 18:32 Ordered Medication Orders Acetaminophen (Tylenol) 650 mg PO Q4H PRN PRN Reason: Pain (Mild 1-3)/fever Aspirin (Halfprin) 81 mg PO DAILY STEFFI Brimonidine Tartrate (Alphagan 0.2% Ophth Soln) ml EYELF BID STEFFI Ceftriaxone Sodium (Rocephin) 1 gm IVPUSH Q24H STEFFI Last Admin: 02/16/20 20:44 Dose: 1 gm Documented by: JOSE RAMON Donepezil HCl (Aricept) 10 mg PO BEDTIME STEFFI Sodium Chloride (Normal Saline) 1,000 mls @ 999 mls/hr IV ASDIRECTED STEFFI Last Admin: 02/16/20 20:10 Dose: 999 mls/hr Documented by: JOSE RAMON Vancomycin HCl 750 mg/ Sodium (Chloride) 250 mls @ 166.667 mls/hr IV Q24H STEFFI Potassium Chloride/Dextrose/Sod Cl (D5 1/4 Ns With 20 Meq Kcl) 1,000 mls @ 75 mls/hr IV ASDIRECTED STEFFI Last Admin: 02/16/20 23:52 Dose: 75 mls/hr Documented by: CHANTELLE Ibuprofen (Motrin) 800 mg PO BEDTIME PRN PRN Reason: REST Latanoprost (Xalatan 0.005% Ophth Soln) ml EYEBOTH BEDTIME [facility] Non-Formulary Medication (Omeprazole [Prilosec]) 20 mg PO DAILY STEFFI Ondansetron HCl (Zofran Odt) 4 mg PO Q4H PRN PRN Reason: nausea, able to take PO Ondansetron HCl (Zofran) 4 mg IV Q4H PRN PRN Reason: Nausea/Vomiting Quetiapine Fumarate (Seroquel) 25 mg PO BEDTIME STEFFI Sodium Chloride (Saline Flush) 10 ml FLUSH ASDIRECTED PRN PRN Reason: flush Last Admin: 02/16/20 19:00 Dose: 10 ml Documented by: DELL Assessment/Plan Comment:: I had a discussion with Patrick this time, and he would like patient transferred to [facility] today with comfort measures and possibly hospice consultation. She had a COVID test on 02/11/20 which was negative. We'll make arrangements for [facility].
[2020-02-17] MEDS ORDERED: Aspirin 81 MG Tab.EC PO SCH (09:00)
[2020-02-17] MEDS ORDERED: Non-Formulary Medication 1 Each (Omeprazole [Prilosec] 20 MG) PO SCH (09:00)
[2020-02-17] MEDS ORDERED: Brimonidine 0.2% Ophth Soln 5 ML Bottle EYELF SCH (09:00)
--- NOTE | 2020-02-17 10:45 | CR ---
INDICATION: Weak. Fell three times today. CHEST, ONE VIEW: An AP upright view of the chest 02/16/20 was compared with 02/07/19 and 12/30/12. The heart did not appear grossly enlarged but may be at the upper limits of normal in size. The aorta is somewhat tortuous with calcification in the arch. Overlying EKG leads are noted. A definite active infiltrate or effusion was not identified. Dextroconvex scoliosis of moderate degree is noted at the lower thoracic spine. 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 MTDD
--- NOTE | 2020-02-17 11:01 | CR ---
INDICATION: Fell three times today. Question possible fracture. PELVIS X-RAY: Two frontal views of the pelvis were obtained 02/16/20 and were compared with 02/07/19. Hypertrophic degenerative changes are noted at the visualized lumbosacral spine with evidence of disc disease-narrowing at L4-5. Somewhat demineralized appearance raises question of osteoporosis which should be correlated clinically. Mild degenerative changes are again noted at the hip joints with minimal narrowing to the craniolateral joint spaces bilaterally. A definite acute fracture or dislocation was not identified. Calcifications are noted in the aorta, iliac and femoral arteries. Phlebolith is noted in the left pelvis. IMPRESSION: 1. No definite acute fracture or dislocation. 2. Mild osteoarthritis hip joints. 3. Intact appearing sacroiliac joints. 4. Degenerative changes and disc disease visualized lumbar spine. 5. Possible demineralization. 6. ASD. MTDD
[2020-02-17] MEDS ORDERED: Latanoprost 0.005% Ophth Soln 2.5 ML Bottle EYEBOTH SCH (21:00)
[2020-02-17] MEDS ORDERED: cefTRIAXone 1 GM Vial IVPUSH SCH (21:00)
[2020-02-17] MEDS ORDERED: Donepezil 5 MG Tab PO SCH (21:00)
[2020-02-17] MEDS ORDERED: QUEtiapine 25 MG Tab PO SCH (21:00)
== END 2020-02-17 11:30 ==
LOC: FB.ED 18:07 → FB.MS 21:11
PROVIDERS: ADMIT Family Medicine; ATTEND Family Medicine
DX: G31.83 Neurocognitive disorder with Lewy bodies (principal); F02.81 Dementia in other diseases classified elsewhere, unspecified severity, with behavioral disturbance; E78.00 Pure hypercholesterolemia, unspecified; I10 Essential (primary) hypertension; K21.9 Gastro-esophageal reflux disease without esophagitis; E86.0 Dehydration; R62.7 Adult failure to thrive; R64 Cachexia; R29.6 Repeated falls; F32.9 Major depressive disorder, single episode, unspecified; R79.82 Elevated C-reactive protein (CRP); T42.0X1A Poisoning by hydantoin derivatives, accidental (unintentional), initial encounter; D69.6 Thrombocytopenia, unspecified; R82.4 Acetonuria; F02.80 Dementia in other diseases classified elsewhere, unspecified severity, without behavioral disturbance, psychotic disturbance, mood disturbance, and anxiety; R94.4 Abnormal results of kidney function studies; R74.8 Abnormal levels of other serum enzymes; Z79.82 Long term (current) use of aspirin; Z20.828 Contact with and (suspected) exposure to other viral communicable diseases; Z79.899 Other long term (current) drug therapy; Z68.1 Body mass index [BMI] 19.9 or less, adult
CPT/HCPCS: 36415; 70450; 71045; 72170; 80048; 80053; 80185; 81001; 83605; 84484; 85025; 85610; 86140; 87040; 93005; 96361; 96365; 96375; 99285-25; G0378; J0696; J2060; J3370; J3480; J7030; J7050; U0002